=== PATIENT | female | born 1985 | race Caucasian/White ===

== ENCOUNTER → 2019-02-03 11:48 | Outpatient (CLI) | payer SELFPAY ==
[2019-02-03 10:55] VITALS: BMI 35.8
[2019-02-03 12:15] LABS: Absolute Lymphocyte Count 2.05 X10^3/ul (0.83-4.51); Absolute Neutrophil Count 7.5 X10^3/uL (2.0-7.7); Basophil# 0.02 X10^3/uL; Basophil% 0.2 % (0-1); Eosinophil# 0.13 X10^3/uL; Eosinophils% 1.3 % (0-5); Hematocrit 40.7 % (37-47); Hemoglobin 14.3 g/dl (12.0-15.0); Lymphocyte # 2.05 X10^3/ul (4.0); Lymphocyte % 20.2 % (19-41); Mean Corp Hgb Conc 35.1 g/gl (32-36); Mean Corpuscular Hgb 29.1 pg (27.0-32.0); Mean Corpuscular Volume 82.9 fL (81-99); Mean Platelet Vol. 8.7 fl (6.2-12.0); Monocyte# 0.42 X10^3/uL; Monocyte% 4.1 % (0-10); Neutrophil # 7.49 X10^3/uL (2.7-7.7); Platelet Count 325 K/mm3 (150-450); RBC Distribution Width CV 12.8 % (11.6-14.6); RBC Distribution Width SD 38.4 fl (35.1-43.9); Red Blood Count 4.91 M/mm3 (4.2-5.4); White Blood Count 10.1 K/mm3 (4.4-11.0)
[2019-02-03 12:17] LABS: POSITIVE COUNT NO; POSITIVE DIFFERENTIAL NO; POSITIVE MORPHOLOGY NO
[2019-02-03 12:48] LABS: Glucose Challenge Gest 1H 50g 110 mg/dL (70-140)
[2019-02-03 13:47] LABS: HIV - WCH Non-Reactive (Nonreactive); Rubella IgG > 500.0 IU/mL
[2019-02-03 16:33] LABS: Chlamydia Trachomatis by PCR Negative (Negative); Neisserai gonorrhoeae by PCR Negative (Negative); Probe Check PASS; Sample Adequacy Control PASS; Specimen Processing Control PASS
[2019-02-04 13:24] LABS: HEPATITIS B SURFACE AG Negative (Negative)
[2019-02-06 03:28] LABS: Rapid Plasmin Reagin (RPR) NONREACTIVE (NONREACTIVE)
[2019-02-06 10:31] LABS: HPV APTIMA, High Risk Negative (Negative)
== END ==
PROVIDERS: Nurse Practitioner Women's Health; Family Provider Family Medicine; PCP Family Medicine; Referring Provider Obstetrics & Gynecology; Visit Provider Obstetrics & Gynecology
DX: Z34.90 Encounter for supervision of normal pregnancy, unspecified, unspecified trimester (principal); Z12.4 Encounter for screening for malignant neoplasm of cervix
CPT/HCPCS: 36415; 82950; 85025; 86592; 86703; 86762; 86850; 86900; 87086; 87340; 87491; 87591; 87624; 88175; G0145

== ENCOUNTER → 2019-05-29 10:47 | Outpatient (CLI) | payer SELFPAY ==
[2019-05-29 09:45] VITALS: BMI 32.8
[2019-05-29 11:23] LABS: Absolute Lymphocyte Count 1.81 X10^3/uL (0.83-4.51); Absolute Neutrophil Count 7.2 X10^3/uL (2.0-7.7); Basophil# 0.03 X10^3/uL; Basophil% 0.3 % (0-1); Eosinophil# 0.08 X10^3/uL; Eosinophils% 0.8 % (0-5); Hematocrit 36.4 % (37-47); Hemoglobin 12.2 g/dL (12.0-15.0); Lymphocyte # 1.81 X10^3/ul (4.0); Lymphocyte % 19.1 % (19-41); Mean Corp Hgb Conc 33.5 g/dL (32-36); Mean Corpuscular Hgb 28.6 pg (27.0-32.0); Mean Corpuscular Volume 85.4 fL (81-99); Mean Platelet Vol. 8.5 fl (6.2-12.0); Monocyte# 0.32 X10^3/uL; Monocyte% 3.4 % (0-10); NRBC Flagged by Analyzer 0 % (0-5); Neutrophil # 7.23 X10^3/uL (2.7-7.7); Neutrophil % 76.1 % (47-70); Platelet Count 325 K/mm3 (150-450); RBC Distribution Width CV 13.1 % (11.6-14.6); RBC Distribution Width SD 39.8 fl (35.1-43.9); Red Blood Count 4.26 M/mm3 (4.2-5.4); White Blood Count 9.5 K/mm3 (4.4-11.0)
[2019-05-29 11:32] LABS: Glucose Challenge Gest 1H 50g 142 mg/dL (70-140)
== END ==
PROVIDERS: Family Provider Family Medicine; PCP Family Medicine; Referring Provider Obstetrics & Gynecology; Visit Provider Obstetrics & Gynecology
DX: Z34.80 Encounter for supervision of other normal pregnancy, unspecified trimester (principal)
CPT/HCPCS: 82950; 85025

== ENCOUNTER → 2019-06-09 09:49 | Outpatient (CLI) | payer SELFPAY ==
[2019-05-29 11:11] VITALS: BMI 32.8
[2019-06-09 11:04] LABS: Glucose GTT-Gestation. Fasting 83 mg/dL (<105)
[2019-06-09 12:43] LABS: Glucose GTT-Gestational 1 Hr 176 mg/dL (<190)
[2019-06-09 13:33] LABS: Glucose GTT-Gestational 3 Hr 169 L (<145)
[2019-06-09 13:54] LABS: Glucose GTT-Gestational 2 Hr 180 mg/dL (<165)
== END ==
PROVIDERS: Family Provider Family Medicine; PCP Family Medicine; Referring Provider Obstetrics & Gynecology; Visit Provider Obstetrics & Gynecology
DX: O99.810 Abnormal glucose complicating pregnancy (principal); Z3A.00 Weeks of gestation of pregnancy not specified
CPT/HCPCS: 36415; 82951; 82952

== ENCOUNTER 2019-07-20 14:00 | Outpatient (RCR) | payer SELFPAY ==
[2019-06-26 10:35] VITALS: BMI 32.8
[2019-07-13 10:15] VITALS: BMI 32.8
== END 2019-07-20 23:59 | disposition home or self-care (01) ==
LOC: DC 14:00
PROVIDERS: Family Provider Family Medicine; PCP Family Medicine; Visit Provider Nurse Practitioner Women's Health
DX: Z71.3 Dietary counseling and surveillance (principal)
CPT/HCPCS: 97802

== ENCOUNTER → 2019-08-07 11:38 | Outpatient (CLI) | payer SELFPAY ==
[2019-08-07 09:46] VITALS: BMI 32.8
== END ==
PROVIDERS: Family Provider Family Medicine; PCP Family Medicine; Visit Provider Nurse Practitioner Women's Health
DX: Z34.93 Encounter for supervision of normal pregnancy, unspecified, third trimester (principal); Z3A.36 36 weeks gestation of pregnancy
CPT/HCPCS: 87081

== ENCOUNTER 2019-09-03 13:55 | Inpatient (IN) | payer SELFPAY ==
[2019-08-29 04:06] VITALS: BMI 32.8
[2019-09-03 14:14] VITALS: BMI 33.6
[2019-09-03] MEDS: Lactated Ringers 1,000 ML 50 ML IV (14:15)
[2019-09-03 14:42] LABS: Absolute Lymphocyte Count 1.98 X10^3/uL (0.83-4.51); Absolute Neutrophil Count 8.9 X10^3/uL (2.0-7.7); Basophil# 0.03 X10^3/uL; Basophil% 0.3 % (0-1); Eosinophil# 0.06 X10^3/uL; Eosinophils% 0.5 % (0-5); Hematocrit 39.4 % (37-47); Hemoglobin 13.4 g/dL (12.0-15.0); Lymphocyte # 1.98 X10^3/ul (4.0); Lymphocyte % 17.1 % (19-41); Mean Corpuscular Hgb 27.8 pg (27.0-32.0); Mean Corpuscular Volume 81.7 fL (81-99); Mean Platelet Vol. 8.5 fl (6.2-12.0); Monocyte# 0.51 X10^3/uL; Monocyte% 4.4 % (0-10); NRBC Flagged by Analyzer 0 % (0-5); Neutrophil # 8.94 X10^3/uL (2.7-7.7); Neutrophil % 77.4 % (47-70); Platelet Count 347 K/mm3 (150-450); RBC Distribution Width CV 13.7 % (11.6-14.6); Red Blood Count 4.82 M/mm3 (4.2-5.4); White Blood Count 11.6 K/mm3 (4.4-11.0)
[2019-09-03] MEDS: Lactated Ringers 500 ML 999 ML IV ×2 (14:56→15:45)
[2019-09-03 15:36] LABS: Bedside Glucose 81 mg/dL (70-110)
[2019-09-03] MEDS: fentaNYL-bupivacaine (epidural) 100 ML BAG EPIDURAL ×2 (15:41→20:23)
[2019-09-03] MEDS: Oxytocin 30 units/NS 500 ml 30 UNITS/500 ML IV.SOLN IV (16:27)
[2019-09-03] MEDS: Lactated Ringers 1,000 ML 200 ML IV ×2 (17:11→21:46)
--- NOTE | 2019-09-03 17:36 | PCM.HP.OB ---
- Problem List (1) Active labor at term Status: Acute (2) Influenza vaccination declined Status: Acute Comment: 06/26/2019 (3) Gestational diabetes Status: Acute Qualifiers: Comment: diet controlled, nl growth at 35, delivery by 40 weeks (4) Supervision of other normal Status: Acute Comment: PRR LEI 09/03/19 surprise to kids (parents know) PC: Checo, Joshua, Yanet Moore, Spouse:Jude (5) Status: Acute Qualifiers: Comment: Declines genetic and carrier screening. Anatomy US normal. History Date of Admission: 09/03/19 Final LEI: 09/03/19 Final LEI Source: LMP Gestational age: 40 Weeks and 1 Days History of this : This is a 34 year-old, at 40 weeks gestational age presents IAL 6 cm dilat some vb no lof good fm. gdma1 controlled Allergies No Known Allergies Allergy (Verified 08/28/19 14:52) Home Medications: Home Medications Vits [Prenatabs FA ] 1 tab PO DAILY 12/29/13 Boostrix Tdap 2.5 Lf unit-8 mcg-5 Lf/0.5 mL intramuscular syringe 0.5 ml IM ONCE #1 ml NS 05/29/19 blood sugar diagnostic strips See Rx Instructions .ROUTE .MEDSUPPLY #100 ea 06/22/19 blood-glucose meter kit See Rx Instructions .ROUTE .MEDSUPPLY #1 ea 06/22/19 lancets 28 gauge See Rx Instructions .ROUTE .MEDSUPPLY #100 ea 06/22/19 Smoking Status: Never smoker Alcohol: None Number of Fetus(es): 1 NST - FHR Rate Baby A Baseline: 130 Variability:: Moderate Accelerations:: 15 x 15 Decelerations:: None NST Reactive:: Yes FHR Category:: Category I Uterine Activity:: q 3-5 History Past Pregnancies: Past Pregnancies Pregancy History 7 Elective abortions Hx Para 4 Spontaneous abortions 2 Hx # Term Pregnancies Ectopic pregnancies Hx # Pregnancies Multiple births # of living children 4 Past Pregnancies Del. Date Name GA/Weeks Outcome Route Bth Weight Gen Labor Lgth Anesthesia Del Locatn Provider FOB Unknown 2007 SAB Unknown 2009 Checo 41 live - full term Male epidural [facility] ccf Unknown 2011 Joshua 40 live - full term Female epidural [facility] ccf Unknown 2013 Teresa 41 live - full term Female epidural [facility] ccf Unknown 2017 Yanet 41 live - full term Female epidural [facility] ccf Labs: Mom's Problem List Problem Status Onset Code Active labor at term Acute Mom's Labs & Results 09/03/19 09/03/19 09/03/19 14:15 14:15 15:04 WBC 11.6 H RBC 4.82 Hgb 13.4 Hct 39.4 MCV 81.7 MCH 27.8 MCHC 34.0 RDW Std Deviation 40.0 RDW Coeff of Xavi 13.7 Plt Count 347 MPV 8.5 Immature Gran % (Auto) 0.300 Neut % (Auto) 77.4 H Lymph % (Auto) 17.1 L [place] % (Auto) 4.4 Eos % (Auto) 0.5 Baso % (Auto) 0.3 Absolute Neuts (auto) 8.9 H Absolute Lymphs (auto) 1.98 Nucleated RBC % 0 POC Glucose 81 Blood Type A POSITIVE Antibody Screen NEGATIVE 09/03/19 09/03/19 09/03/19 16:22 17:16 18:08 WBC RBC Hgb Hct MCV MCH MCHC RDW Std Deviation RDW Coeff of Xavi Plt Count MPV Immature Gran % (Auto) Neut % (Auto) Lymph % (Auto) [place] % (Auto) Eos % (Auto) Baso % (Auto) Absolute Neuts (auto) Absolute Lymphs (auto) Nucleated RBC % POC Glucose 78 96 99 Blood Type Antibody Screen 09/03/19 09/03/19 09/03/19 19:23 20:14 21:16 WBC RBC Hgb Hct MCV MCH MCHC RDW Std Deviation RDW Coeff of Xavi Plt Count MPV Immature Gran % (Auto) Neut % (Auto) Lymph % (Auto) [place] % (Auto) Eos % (Auto) Baso % (Auto) Absolute Neuts (auto) Absolute Lymphs (auto) Nucleated RBC % POC Glucose 88 92 101 Blood Type Antibody Screen 09/03/19 23:38 WBC RBC Hgb Hct MCV MCH MCHC RDW Std Deviation RDW Coeff of Xavi Plt Count MPV Immature Gran % (Auto) Neut % (Auto) Lymph % (Auto) [place] % (Auto) Eos % (Auto) Baso % (Auto) Absolute Neuts (auto) Absolute Lymphs (auto) Nucleated RBC % POC Glucose 105 Blood Type Antibody Screen Course Did the patient receive Yes care? Labs Blood Type: A RH: POSITIVE RPR/VDRL/Syphilis Nonreactive Rubella status Immune HbSAg Negative Date Done: 02/03/19 Chlamydia Negative Gonorrhea Negative HIV/AIDS Non-Reactive Group B Strep: Negative Current Obstetrical History Gestational Diabetes Yes Incompetent Cervix No Infertility No IUGR No Macrosomia No Hypertension/Pre-eclampsia No Placenta Previa/Abruption No PTL/PROM No Uterine anomaly No Oligohydramnios No Polyhydramnios No Multiple gestation No Past Medical History Asthma No Diabetes No Hypertension No Heart disease No Mitral valve prolapse No Neurologic/Seizure disorder/ No Migraines Kidney disease No Liver disease No Varicosities No Clotting disorders/Hx of DVT No Thyroid Dysfunction No Other medical diseases No Psychiatric disorders No Major trauma No Abnormal PAP smear No Sleep apnea No Mammogram in the last 2 years No Social History Marital Status: Alleged father Jude Petersen Hx Smoking No Smoking Status Never smoker Expected Delivery Method: Spontaneous Vaginal Review of Systems Constitutional: Denies: Fever, Malaise Eyes: Denies: Blurred vision, Vision Change HEENT: Denies: Head Aches, Visual Changes Cardiovascular: Denies: Chest Pain, Palpitations Respiratory: Denies: Cough, Shortness of Breath, Wheezing Gastrointestinal: Denies: Abdominal Pain, Diarrhea, Nausea, Vomiting Genitourinary: Denies: Dysuria, Hematuria Musculoskeletal: Denies: Joint Pain, Muscle pain Skin: Denies: Lesions, Rash Neurological: Denies: Blurred vision, Focal weakness, Headaches Psychiatric: Denies: Anxiety, Depression Endocrine: Denies: Heat/ Cold Intolerance Hematologic/ Lymphatic: Denies: Easy Bruising, Easy Bleeding Physical Exam General: Alert, Cooperative, No apparent distress HEENT: Atraumatic, Normocephalic. Negative for: Thyromegaly, Lymphadenopathy Cardiovascular: Regular rate Lungs: Normal air movement Abdomen: Soft, Non Tender, Gravid Neurological: Deep Tendon Reflexes 2+/4 and Symmetrical, Neuro grossly intact. Negative for: Clonus [employer]: Normal external genitalia. Negative for: Vulvar lesions Estimated gestational size: Appropriate for gestational size Presentation: Cephalic Assessment/Plan All Active Problems (Last Reviewed 08/28/19 @ 14:53 by Jody Powell) Active labor at term (Acute) Influenza vaccination declined (Acute) Gestational diabetes (Acute) Supervision of other normal (Acute) (Acute) This is a 34 year-old, , at 40 weeks gestational age presents in active labor gbs neg epidural
[2019-09-03 19:20] LABS: Bedside Glucose 96 mg/dL (70-110)
[2019-09-03 19:20] LABS: Bedside Glucose 99 mg/dL (70-110)
[2019-09-03 19:20] LABS: Bedside Glucose 78 mg/dL (70-110)
[2019-09-03 19:40] LABS: Bedside Glucose 88 mg/dL (70-110)
[2019-09-03 20:21] LABS: Bedside Glucose 92 mg/dL (70-110)
[2019-09-03 21:40] LABS: Bedside Glucose 101 mg/dL (70-110)
--- NOTE | 2019-09-03 22:15 | NURSING ---
hammer catheter removed at this time by Dr Smith prior to delivery. Intact
[2019-09-03] MEDS: Oxytocin 30 units/NS 500 ml 30 UNITS/500 ML IV.SOLN 334 UNITS IV (22:27)
--- NOTE | 2019-09-03 22:41 | PCM.OPRPT ---
Problem List (1) Active labor at term Status: Acute (2) Influenza vaccination declined Status: Acute Comment: 06/26/2019 (3) Gestational diabetes Status: Acute Qualifiers: Comment: diet controlled, nl growth at 35, delivery by 40 weeks (4) Supervision of other normal Status: Acute Comment: PRR ELI 09/03/19 surprise to kids (parents know) PC: Joshua Kessler Paige, Emma, Spouse:Jude (5) Status: Acute Qualifiers: Comment: Declines genetic and carrier screening. Anatomy US normal. Vaginal Delivery Maternal Presentation: Active Labor ial, gdma1 Method of Induction: Pitocin Amniotic Membrane Rupture Type: Artificial Amniotic Fluid Description: Clear Final LEI: 09/03/19 Gestational age: 40 Weeks and 3 Days Date of Procedure: 09/03/19 Pre-Operative Diagnosis: ial gdma1 Post-Operative Diagnosis: same Surgery/ Procedure Performed: Spontaneous Vaginal Delivery Type of Anesthesia: Epidural Description of Procedure: Patient began pushing and delivered the head in the AUSTYN presentation. The head was delivered atraumatically and a loose nuchal cord ?1 was identified and easily reduced over the infant's head. The anterior and posterior shoulders delivered without complication followed by the rest of the and the was placed on the maternal abdomen. Delayed cord clamping was employed for approximately 60 seconds. Cord was clamped and cut and gentle traction was applied to the cord and the placenta delivered spontaneously immediately following it was noted to be intact with three-vessel cord. The perineum and vagina were inspected and noted to have a small first-degree perineal laceration that was repaired in the usual fashion with 3-0 Vicryl Rapide. EBL was 200 cc. Patient and infant tolerated delivery well. Presentation: AUSTYN Placental Delivery Description: Spontaneous Placenta Disposition: [facility] Cord Vessel Description: 3 Vessels Cord Entanglement: Around neck x 1, tight Estimated Blood Loss: 200 A gender: Male Multi Select Codes - Urinary/Genital Urinary/Genital CPT Codes: 30831 Vaginal Delivery global pk
[2019-09-03 23:46] LABS: Bedside Glucose 105 mg/dL (70-110)
[2019-09-04 00:35] VITALS: BP 97/56; PULSE 97; RESP 18; TEMP 36.8; O2SAT 97
[2019-09-04] MEDS: 0.9% Saline Lock 10 ML Syringe IV (01:22)
[2019-09-04 03:09] VITALS: BP 115/58; PULSE 101; RESP 18; TEMP 36.8
[2019-09-04 05:51] LABS: Bedside Glucose 103 mg/dL (70-110)
[2019-09-04] MEDS: Naproxen 250 MG Tablet 500 MG PO ×2 (07:32→19:50)
[2019-09-04 07:39] VITALS: BP 109/61; PULSE 79; RESP 16; TEMP 36.4
[2019-09-04 12:09] VITALS: BP 116/59; PULSE 82; RESP 16; TEMP 36.9
[2019-09-04] MEDS: Acetaminophen 500 MG Tablet 1000 MG PO (14:45)
[2019-09-04 15:55] VITALS: BP 111/59; PULSE 78; RESP 16; TEMP 36.4
[2019-09-04 19:52] VITALS: BP 116/61; PULSE 78; RESP 18; TEMP 36.8
[2019-09-04] MEDS: Senna/Docusate Sodium 1 Tablet PO (20:12)
[2019-09-05 02:27] VITALS: BP 119/61; PULSE 100; RESP 18; TEMP 36.6
[2019-09-05] MEDS: Acetaminophen 500 MG Tablet 1000 MG PO (02:39)
--- NOTE | 2019-09-05 07:05 | DCINST_ITS ---
Discharge Diet: No Restrictions Discharge Activity: Return to Normal Activity, May not drive while taking narcotic pain medications., May Shower May resume sexual activity in: 4-6 weeks Call your doctor if your incision/area has: Continuous Slow Oozing, Sudden Increased Bleeding, Increased Pain/ Swelling, Increased Redness, Foul Smelling Discharge Additional Instructions: If you experience any of the following, contact your healthcare provider. * Bleeding that soaks a pad every hour for 2 hours * Fever 100.4 or higher * Unrelieved incision or abdominal pain * Swelling, redness, discharge or bleeding from your incision or episiotomy site * Your incision begins to separate * Problems urinating (including inability to urinate or burning while urinating). * Visual changes * Severe headache * Flu-like symptoms * Pain or redness in one of both of your breasts * Pain, warmth, tenderness or swelling in your legs, especially the calf area * Frequent nausea and vomiting * Symptoms of depression or anxiety If you experience any of the following, call 911 or go to the nearest Emergency Room. * Chest pain * Problems breathing * Seizure activity * Partial or complete paralysis of a body part, slurred speech, weakness or drooping of the face, or a sudden inability to walk or hold your balance Allergies/Adverse Reactions: Allergies No Known Allergies Allergy (Verified 08/28/19 14:52) Medications to take at Discharge Vits [Prenatabs FA ] 1 tab PO DAILY 12/29/13 Boostrix Tdap 2.5 Lf unit-8 mcg-5 Lf/0.5 mL intramuscular syringe 0.5 ml IM ONCE #1 ml NS 05/29/19 blood sugar diagnostic strips See Rx Instructions .ROUTE .MEDSUPPLY #100 ea 06/22/19 blood-glucose meter kit See Rx Instructions .ROUTE .MEDSUPPLY #1 ea 06/22/19 lancets 28 gauge See Rx Instructions .ROUTE .MEDSUPPLY #100 ea 06/22/19 Please Follow Up With: Myra Smith MD - [phone] When: Call to make an appointment with your doctor in 6 weeks. If you had elevated Blood pressure or 4th degree laceration you will need to be seen in 2 weeks. Primary Care Physician: Dolly Harding MD [Primary Care Provider] - Test Results: Test results from this visit will be discussed in further detail at your follow- up appointment, if applicable.
--- NOTE | 2019-09-05 07:05 | PCM.PN.OB ---
Patient Problems: Active and Suspected Problems (Last Reviewed 08/28/19 @ 14:53 by Jody Powell) Active labor at term (Acute) Subjective: doing well no complaints pain controlled no CP SOB N V ambulating well tolerating po lochia moderate, going well - Physical Exam Vitals/I&O's: Vital Signs Temp Pulse Resp BP Pulse Ox 97.9 F 100 18 119/61 97 09/05/19 02:27 09/05/19 02:27 09/05/19 02:27 09/05/19 02:27 09/04/19 00:35 Oxygen Delivery Method Room Air Weight: 190 lb Body Mass Index (BMI) 33.6 Intake and Output for Last 24 Hours 09/03/19 09/04/19 09/05/19 23:59 23:59 23:59 Intake Total 2749.28 / 2749.28 333 / 333 Output Total 1800 / 1800 1650 / 1650 Balance 949.28 / 949.28 -1317 / -1317 General: Alert, Oriented x3 Current Medications Acetaminophen (Tylenol) 1,000 mg PO Q8H PRN PRN PRN Reason: Pain Score 1-310 Last Admin: 09/05/19 02:39 Dose: 1,000 mg Documented by: Bisacodyl (Dulcolax) 10 mg RECTAL UD PRN PRN Reason: If no BM Dibucaine (Dibucaine) 1 applic TOPICAL TID PRN PRN; Protocol PRN Reason: Discomfort Glucagon () 1 mg IM .X1 PRN PRN Reason: Hypoglycemia Hydrocortisone (Hytone) 1 applic TOPICAL TID PRN PRN; Protocol PRN Reason: Discomfort Dextrose (Dextrose 10%-Water) 250 mls @ 999 mls/hr IV X1 PRN; Protocol PRN Reason: HYPOGLYCEMIA Methylergonovine Maleate (Methergine) 0.2 mg IM X1 PRN PRN Reason: Excess bleeding/uterine atony Naproxen (Naprosyn) 500 mg PO Q8H PRN PRN PRN Reason: Pain Score 1-3/10 Last Admin: 09/04/19 19:50 Dose: 500 mg Documented by: Ondansetron HCl (Zofran) 4 mg IV Q4H PRN PRN PRN Reason: Nausea Oxycodone HCl (Oxyir) 5 - 10 mg PO Q4H PRN PRN PRN Reason: Pain Score 4-10/10 Senna/Docusate Sodium (Senokot-S, Ananya-Colace) 1 - 2 tablet PO DAILY PRN PRN PRN Reason: Constipation Last Admin: 09/04/19 20:12 Dose: 2 tablet Documented by: Simethicone (Mylicon) 80 mg PO PCHS PRN PRN Reason: Indigestion/Stomach pain Sodium Chloride () 5 - 15 ml IV UD PRN PRN Reason: SALINE FLUSH Last Admin: 09/04/19 01:22 Dose: 10 ml Documented by: Medical Necessity - Tobacco Use Smoking Status: Never smoker Assessment/Plan All Active Problems (Last Reviewed 08/28/19 @ 14:53 by Jody Powell) Active labor at term (Acute) Influenza vaccination declined (Acute) Gestational diabetes (Acute) Supervision of other normal (Acute) (Acute) s/p PPD # 2 1. routine post delivery care 2. breast feeding- support given 3. rh positive 4. rubella immune
[2019-09-05 07:45] VITALS: BP 114/62; PULSE 100; RESP 14; TEMP 36.7
[2019-09-05] MEDS: Naproxen 250 MG Tablet 500 MG PO (07:55)
[2019-09-05 13:00] VITALS: BP 118/75; PULSE 101; RESP 18; TEMP 36.4
== END 2019-09-05 13:25 | disposition home or self-care (01) | DRG 807 ==
PROVIDERS: Admitting Provider Obstetrics & Gynecology; Family Provider Family Medicine; PCP Family Medicine; Referring Provider Obstetrics & Gynecology; Visit Provider Obstetrics & Gynecology
DX: O24.420 Gestational diabetes mellitus in childbirth, diet controlled (principal); O69.81X0 Labor and delivery complicated by cord around neck, without compression, not applicable or unspecified; O70.0 First degree perineal laceration during delivery; Z28.21 Immunization not carried out because of patient refusal; Z3A.40 40 weeks gestation of pregnancy; Z37.0 Single live birth
CPT/HCPCS: 59025; 59050; 76815; 82962; 85025; 86850; 86900; 86901; 99218; J7120; A4216; G0378

== ENCOUNTER 2023-05-05 06:31 | Emergency (ER) | payer OTHER, SELFPAY ==
[2023-05-05 06:33] VITALS: PULSE 61; RESP 24; TEMP 36.4; O2SAT 100; BMI 33.5
--- NOTE | 2023-05-05 06:57 | CT_ITS ---
STUDY: CTA CHEST REASON FOR EXAM: Female, 38 years old. Chest pain with inspiration RADIATION DOSAGE (If Supplied By Facility): CTDIvol = ( 13.18 ) mGy, DLP = ( 351.06 ) mGycm TECHNIQUE: The examination was performed with the intravenous administration of IV 100mL Isovue-370. Post-processing of the angiographic images was performed, with multiplanar reformation and 3D reconstruction. Individualized dose optimization techniques were used for this CT. COMPARISON: No prior examinations are available for comparison. FINDINGS: Normal enhancement of the main pulmonary artery and right and left pulmonary arteries. There is limited enhancement of the bilateral peripheral pulmonary arteries. There is no demonstrated central pulmonary embolism. Difficult to evaluate the peripheral branches particularly in the left lower lobe. Small embolism cannot be excluded. Normal thoracic aorta and visualized great vessels. There is no demonstrated aortic dissection. Normal heart and pericardium. Normal mediastinum. Normal hilar regions. Normal visualized trachea and bronchi. The lungs are well expanded. There are no pulmonary infiltrates. There are no pleural effusions. Normal chest wall structures. Normal osseous structures. The visualized portions demonstrate no acute process. CT/CTA Chest W/WO Contrast IMPRESSION: 1. No evidence of central pulmonary embolism. Suboptimal evaluation of the peripheral branches particularly in the left lower lobe. 2. No evidence of the dissection. 3. No mass, adenopathy or focal acute pulmonary infiltrates. Electronically Signed: Ariel Wood MD at 10:06 EDT ,
--- NOTE | 2023-05-05 07:16 | EX.ED.DYSGE1 ---
HPI <Dr. Zach Naidu, DO - Last Filed: 05/05/23 07:25> History of Present Illness Chief Complaint: Flank Pain Informant: patient and spouse/S.O. Narrative Narrative: Patient is a 38-year-old female who states she has no significant past medical conditions and takes no daily medications. She gave a vaginal home on Saturday/6 days ago with the help of spoilage worker. According to patient and in the birthing process went well and she labored for approximately 6 hours without any issues. Reportedly there was standard bleeding but no excessive blood loss. Patient was able to urinate a few hours later and had a bowel movement 2 days later. Reportedly she has been doing well and then this morning a few hours prior to arrival developed sudden onset left-sided back/flank pain. Patient states that she cannot get comfortable. She states that motion does not make the pain better or worse but that she cannot hold still secondary to the pain. She states she is nauseous and having bouts of vomiting since the pain started. She denies any fevers or chills or chest pain but does state that she has worsening pain with inspiration. Based on the sudden nature of the pain and the fact that there is been no improvement with time patient presents for evaluation [facility] <Dr. Zach Naidu, - Last Filed: 05/05/23 07:25> [facility] Medical History no medical history Home Medications blood sugar diagnostic (Blood Glucose Test strips) #100 ea 06/22/19 [Rx Last Taken Unknown] blood-glucose meter #1 ea 06/22/19 [Rx Last Taken Unknown] lancets 28 gauge (Comfort EZ Lancets) #100 ea 06/22/19 [Rx Last Taken Unknown] cephalexin 500 mg capsule 500 mg PO Q6 #28 CAPSULES 05/05/23 [Rx Last Taken Unknown] oxycodone-acetaminophen 5 mg-325 mg tablet 1 tab PO Q6H PRN PRN Pain 3 days #12 TABLETS 05/05/23 [Rx Last Taken Unknown] Allergy/AdvReac Type Severity Reaction Status Date / Time No Known Allergies Allergy Verified 10/14/19 13:19 Family History Mother Heart disease Breast cancer Father Myocardial infarction, Onset Age: 56 Surgical History no surgical history Social History (Updated 10/14/19 @ 23:[address] 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 Zach Naidu, DO - Last Filed: 05/05/23 07:25> ROS ED Constitutional Constitutional ED: Denies chills or fever(s) Eyes Eyes: Denies change in vision ENT ENT ED: Denies sore throat Cardiovascular Cardiovascular: Denies chest pain, palpitations or racing heartbeat Respiratory/Chest Respiratory/Chest: Denies cough or dyspnea Gastrointestinal Gastrointestinal: Reports nausea and vomiting; Denies abdominal pain or diarrhea Genitourinary Genitourinary ED: Denies dysuria Musculoskeletal Musculoskeletal: Reports back pain; Denies myalgias Integumentary Denies rash Neurologic Neurologic: Denies headache(s) Hematologic/Lymphatic Hematologic/Lymphatic: Denies easy bleeding or easy bruising EXAM <Dr. Zach Naidu, DO - Last Filed: 05/05/23 07:25> Physical Exam Const Vital Signs: 05/05/23 06:33 05/05/23 09:51 Temperature 97.6 F L Temperature Source Temporal Pulse Rate 61 61 Respiratory Rate 24 H Blood Pressure 120/69 Blood Pressure Mean 86 Pulse Ox 100 99 Oxygen Delivery Method Room Air Room Air Positive well nourished and well developed General Appearance ED: well developed HEENT Reports moist mucous membranes Eyes PERRL and EOMs intact bilaterally General Eye ED: Yes pale conjunctiva; Negative for scleral icterus Neck supple Neck Narrative: No nuchal rigidity or meningeal signs noted Resp normal respiratory effort and clear to auscultation bilaterally Resp Narrative: Breath sounds are slightly diminished throughout but overall clear to auscultation Cardio regular rate and regular rhythm Rate: other Other Details: Radial and carotid pulses are equal and symmetric GI normal to inspection, nondistended, normoactive bowel sounds, non-tender and non-distended GI Narrative: Patient has a standard post vaginal delivery abdomen that is soft nontender and nondistended with hypoactive bowel sounds. No voluntary guarding or rigidity. No pulsatile mass or fluid wave Auscultation: normoactive bowel sounds Palpation: soft Back/Spine no CVA tenderness Extremity Extremity Narrative: There is slight/trace asymmetric edema of the left lower leg compared to right but negative Homans' sign bilaterally Neuro oriented x3 and CN's II-XII intact bilaterally Sensorium / Orientation: alert Motor Exam: strength 5/5 throughout Psych Psych Narrative: Patient has a nervous/anxious affect Skin no rashes or lesions noted Skin Narrative: Skin is slightly pale in color but capillary refill remains less than 3 seconds <Dr. Craig Sepulveda MD - Last Filed: 05/05/23 11:16> Physical Exam Const Vital Signs: 05/05/23 06:33 05/05/23 09:51 Temperature 97.6 F L Temperature Source Temporal Pulse Rate 61 61 Respiratory Rate 24 H Blood Pressure 120/69 Blood Pressure Mean 86 Pulse Ox 100 99 Oxygen Delivery Method Room Air Room Air MDM <Dr. Zach Naidu DO - Last Filed: 05/05/23 07:25> MDM MDM Narrative Medical decision making narrative: Patient presented to the ER afebrile but patient and both reported sudden onset of pain in the patient's symptoms did not worsen or improve with any type of motion. There is concern this could be kidney stone based on her sudden onset of pain but she did not have CVA pain on exam. Patient also voiced that taking breath since seem to worsen symptoms and with her recent state and vaginal delivery she is at risk for potential pulmonary embolus. She also has risk for UTI/pyelonephritis as a cause of her sudden onset back/flank pain. Secondary to to this differential patient will undergo a CTA of her chest to check for potential PE as well as CT of abdomen and pelvis to look for potential kidney stone versus pyelonephritis or abdominal pathology such as biliary colic or pancreatitis. The patient's labs and imaging are still pending and therefore patient be signed out to the daytime physician Dr. Sepulveda. Disposition will be per him regarding the patient's response to treatment as well as testing results History & Record Review Discussion w/independent historian: Patient and Significant other Lab Data Labs: Laboratory Results - last 24 hr 05/05/23 05/05/23 05/05/23 06:50 07:15 10:32 WBC 10.6 RBC 4.23 Hgb 10.2 L Hct 33.4 L MCV 79.0 L MCH 24.1 L MCHC 30.5 L RDW Std Deviation 46.6 H RDW Coeff of Xavi 16.6 H Plt Count 527 H MPV 8.4 Immature Gran % (Auto) 0.600 Neut % (Auto) 57.0 Lymph % (Auto) 35.9 [place] % (Auto) 4.1 Eos % (Auto) 1.9 Baso % (Auto) 0.5 Absolute Neuts (auto) 6.1 Absolute Lymphs (auto) 3.81 Nucleated RBC % 0 PT 13.6 INR 1.0 APTT 32.7 Sodium 140 Potassium 3.6 Chloride 107 Carbon Dioxide 21.0 Anion Gap 12 BUN 13 Creatinine 0.95 Estim Creat Clear Calc 66.42 Est GFR (MDRD) Af Amer 85 Est GFR (MDRD) Non-Af 70 BUN/Creatinine Ratio 13.7 Glucose 116 H Calcium 8.7 Total Bilirubin 0.40 Direct Bilirubin 0.09 AST 40 H ALT 73 H Alkaline Phosphatase 227 H Total Protein 7.3 Albumin 2.9 L Globulin 4.4 H Lipase 40 Urine Color Yellow Urine Clarity Sl. Cloudy Urine pH 5.0 Ur Specific [place] 1.015 Urine Protein 30 H Urine Glucose (UA) Normal Urine Ketones 15 H Urine Occult Blood 250 H Urine Nitrite Negative Urine Bilirubin Negative Urine Urobilinogen Normal Ur Leukocyte Esterase 500 H Urine RBC 10-25 SEEN Urine WBC 10-25 SEEN Ur Squamous Epith Cells 0 SEEN Urine Bacteria RARE Urine Mucus 0 SEEN Radiography Diagnostic Testing: Clinical Impression(s) from Imaging Studies Chest CTA 05/05/23 06:57 IMPRESSION: 1. No evidence of central pulmonary embolism. Suboptimal evaluation of the peripheral branches particularly in the left lower lobe. 2. No evidence of the dissection. 3. No mass, adenopathy or focal acute pulmonary infiltrates. Electronically Signed: Ariel Wood MD at 10:06 EDT , Abdomen/Pelvis CT 05/05/23 08:27 IMPRESSION: 1. Subtle stranding around the upper pole of the left kidney could reflect early pyelonephritis. 2. No evidence of urinary tract stones or hydronephrosis. 3. Otherwise no focal acute inflammatory process. 4. Markedly enlarged uterus with possible fibroids. Electronically Signed: Ariel Wood MD at 9:12 EDT , <Dr. Craig Sepulveda MD - Last Filed: 05/05/23 11:16> [facility] Lab Data Attestation: I reviewed the patient's lab results. Labs: Laboratory Results - last 24 hr 05/05/23 05/05/23 05/05/23 06:50 07:15 10:32 WBC 10.6 RBC 4.23 Hgb 10.2 L Hct 33.4 L MCV 79.0 L MCH 24.1 L MCHC 30.5 L RDW Std Deviation 46.6 H RDW Coeff of Xvai 16.6 H Plt Count 527 H MPV 8.4 Immature Gran % (Auto) 0.600 Neut % (Auto) 57.0 Lymph % (Auto) 35.9 [place] % (Auto) 4.1 Eos % (Auto) 1.9 Baso % (Auto) 0.5 Absolute Neuts (auto) 6.1 Absolute Lymphs (auto) 3.81 Nucleated RBC % 0 PT 13.6 INR 1.0 APTT 32.7 Sodium 140 Potassium 3.6 Chloride 107 Carbon Dioxide 21.0 Anion Gap 12 BUN 13 Creatinine 0.95 Estim Creat Clear Calc 66.42 Est GFR (MDRD) Af Amer 85 Est GFR (MDRD) Non-Af 70 BUN/Creatinine Ratio 13.7 Glucose 116 H Calcium 8.7 Total Bilirubin 0.40 Direct Bilirubin 0.09 AST 40 H ALT 73 H Alkaline Phosphatase 227 H Total Protein 7.3 Albumin 2.9 L Globulin 4.4 H Lipase 40 Urine Color Yellow Urine Clarity Sl. Cloudy Urine pH 5.0 Ur Specific [place] 1.015 Urine Protein 30 H Urine Glucose (UA) Normal Urine Ketones 15 H Urine Occult Blood 250 H Urine Nitrite Negative Urine Bilirubin Negative Urine Urobilinogen Normal Ur Leukocyte Esterase 500 H Urine RBC 10-25 SEEN Urine WBC 10-25 SEEN Ur Squamous Epith Cells 0 SEEN Urine Bacteria RARE Urine Mucus 0 SEEN Radiography Diagnostic Testing: Clinical Impression(s) from Imaging Studies Chest CTA 05/05/23 06:57 IMPRESSION: 1. No evidence of central pulmonary embolism. Suboptimal evaluation of the peripheral branches particularly in the left lower lobe. 2. No evidence of the dissection. 3. No mass, adenopathy or focal acute pulmonary infiltrates. Electronically Signed: Ariel Wood MD at 10:06 EDT , Abdomen/Pelvis CT 05/05/23 08:27 IMPRESSION: 1. Subtle stranding around the upper pole of the left kidney could reflect early pyelonephritis. 2. No evidence of urinary tract stones or hydronephrosis. 3. Otherwise no focal acute inflammatory process. 4. Markedly enlarged uterus with possible fibroids. Electronically Signed: Ariel Wood MD at 9:12 EDT , Treatment and Re-Evaluation Comments:: Patient checked out to me. She was refusing CT scanning because of the dye and the need to breast-feed every 3 hours. I had a prolonged conversation with the patient and her . She received morphine about 30 minutes prior to this conversation so she began breast-feeding as soon as possible, and in the literature that I reviewed, it is safe to breast-feed after receiving IV dye as less than 1% of the dye is transmitted into breastmilk and less than 1% of that is absorbed after baby feeds on that breastmilk. They are okay undergoing CT scanning with contrast. Furthermore, current recommendations are to not stop breast-feeding after 1 dose of morphine which is actually the preferred analgesic and a lactating mother. I discussed the small risks of breast-feeding after receiving morphine, she understands this, they do not have any milk saved and they do not have any formula right now, and she is asking for more morphine and understands his risks which is then ordered and given. Patient went to CT and her IV blew prior to being able to get the CTA. Therefore I changed the CT abdomen/pelvis to a noncontrast study, and then she came back and received another IV and went back for CTA. I reviewed the studies' imaging and report which I agree with, basically negative for PE or any intrathoracic acute pathology, and the CT abdomen/pelvis showed mild perinephric stranding on the left without signs of hydronephrosis or obstructive uropathy. Differential here includes infection as well as a stone/obstruction that had resolved prior to taking the images. She was given a couple doses of morphine total as well as Toradol and the latter medication really helped her pain more. At this time I am suggesting this is renal in etiology, but she has had no urinary symptoms. Her urine is suggesting infection. I am sending this for culture and given the scenario treating empirically since she has renal colic, for infection. Received Rocephin 1 g IV, and we will send her home on cephalexin which is the least likely to interfere with , and she stable for discharge home. Of note, Toradol has been shown to not be harmful to babies and lactating mothers and she received 1 dose. Discharge Plan Triage Chief Complaint: Flank Pain ED Provider: Zach Naidu Dx/Rx/DC Orders Clinical Impression: Acute left flank pain, Acute upper urinary tract infection, Renal colic on left side Instructions: Urinary Tract Infections in Women, ED Kidney Stone w/ Colic Prescriptions: New oxycodone-acetaminophen [oxycodone-acetaminophen] 5-325 mg tablet 1 tab PO Q6H PRN PRN (Reason: Pain) 3 Days Qty: 12 0RF cephalexin [cephalexin] 500 mg capsule 500 mg PO Q6 Qty: 28 0RF No Action (DME) Blood Glucose Test Strip See Rx Instructions .ROUTE .MEDSUPPLY Qty: 100 9RF Rx Instructions: test blood glucose fasting and the 2 hours after breakfast, lunch and dinner. (DME) blood-glucose meter Kit See Rx Instructions .ROUTE .MEDSUPPLY Qty: 1 0RF Rx Instructions: As directed (DME) lancets [Comfort EZ Lancets] 28 gauge misc See Rx Instructions .ROUTE .MEDSUPPLY Qty: 100 9RF Rx Instructions: As directed Primary Care Provider: Dolly Harding Referrals: Dolly Harding MD [Primary Care Provider] - 3-5 Days (And/or with your OB) Activity Restrictions/Additional Instructions: You may continue breast-feeding and monitoring baby closely for any signs of lethargy while taking these medications and less needing to take 6 doses of oxycodone per day or more. Disposition Disposition: Home, Self Care
[2023-05-05 07:17] LABS: Absolute Lymphocyte Count 3.81 X10^3/uL (0.83-4.51); Absolute Neutrophil Count 6.1 X10^3/uL (2.0-7.7); Basophil# 0.05 X10^3/uL; Basophil% 0.5 % (0-1); Eosinophils% 1.9 % (0-5); Hematocrit 33.4 % (37-47); Hemoglobin 10.2 g/dL (12.0-15.0); Lymphocyte # 3.81 X10^3/ul (0.83-4.51); Lymphocyte % 35.9 % (19-41); Mean Corp Hgb Conc 30.5 g/dL (32-36); Mean Corpuscular Hgb 24.1 pg (27.0-32.0); Mean Platelet Vol. 8.4 fl (6.2-12.0); Monocyte# 0.44 X10^3/uL; Monocyte% 4.1 % (0-10); NRBC Flagged by Analyzer 0 % (0-5); Neutrophil # 6.06 X10^3/uL (2.7-7.7); Platelet Count 527 K/mm3 (150-450); RBC Distribution Width CV 16.6 % (11.6-14.6); RBC Distribution Width SD 46.6 fl (35.1-43.9); Red Blood Count 4.23 M/mm3 (4.2-5.4); White Blood Count 10.6 K/mm3 (4.4-11.0)
[2023-05-05] MEDS: 0.9% Normal Saline 1,000 ML 999 ML IV (07:17)
[2023-05-05] MEDS: Morphine 4 MG/ML Syringe IV (07:17)
[2023-05-05] MEDS: Ondansetron 4 MG/2 ML Vial IV (07:17)
[2023-05-05 07:40] LABS: AST(SGOT) 40 U/L (15-37); Alanine Aminotransfer ALT/SGPT 73 U/L (13-56); Albumin, Serum 2.9 g/dL (3.2-5.0); Alkaline Phosphatase 227 U/L (45-117); Anion Gap 12 (5-15); BUN 13 mg/dL (7-18); BUN/Creat Ratio 13.7 RATIO (10-20); Bilirubin, Direct 0.09 mg/dL (0.00-0.30); Calcium,Total 8.7 mg/dL (8.5-10.1); Chloride 107 mmol/L (98-107); Creatinine, Serum 0.95 mg/dL (0.55-1.02); EST Glomerular Filtration Rate 70 mL/min (>60); Est Glom Filt Rate - Afr Amer 85 mL/min (>60); Estimated Creatinine Clearance 66.42 ml/min; Globulin 4.4 g/dL (2.2-4.2); Glucose 116 mg/dL (74-106); Lipase 40 U/L (13-75); Potassium 3.6 mmol/L (3.5-5.1); Protein, Total 7.3 g/dL (6.4-8.2); Sodium Level 140 mmol/L (136-145)
[2023-05-05 07:53] LABS: Prothrombin Time (Protime)PT. 13.6 SECONDS (11.7-14.9)
[2023-05-05 07:54] LABS: Partial Thromboplast Time 32.7 Seconds (24.1-36.2)
[2023-05-05] MEDS: Morphine 2 MG/ML Syringe IV (08:11)
--- NOTE | 2023-05-05 08:27 | CT_ITS ---
INDICATION: Left flank pain EXAMINATION: CT ABDOMEN AND PELVIS WITHOUT CONTRAST TECHNIQUE: Helically acquired images were obtained of the abdomen and pelvis without oral or IV contrast. A radiation dose optimization technique was used for this scan. IV Contrast dosage and agent: None. Oral contrast: None. RADIATION DOSAGE (If Supplied By Facility): CTDIvol = ( 10.13 ) mGy, DLP = ( 511.25 ) mGycm COMPARISON: No prior examinations are available for comparison. FINDINGS: LOWER CHEST: Lung bases are clear. No cardiomegaly or pericardial effusion. LIVER: Homogeneous. No focal mass. GALLBLADDER AND BILIARY TREE: No calcified gallstones. No gallbladder distension or wall edema. No intra- or extrahepatic biliary ductal dilation. PANCREAS: No focal cystic or solid mass. SPLEEN: Normal size without focal cystic or solid mass. ADRENAL GLANDS: Unremarkable right adrenal gland appears slightly prominent left adrenal gland. KIDNEYS AND URETERS: Subtle stranding near the upper pole of the left kidney. No evidence of ureteral stones. No hydronephrosis. PERITONEUM: No ascites or free air. No other fluid collection. BOWEL: No evidence of acute appendicitis. No stomach or bowel distension. No focal inflammatory change. LYMPH NODES: No enlarged mesenteric or retroperitoneal lymph nodes. VESSELS: Aorta is non-dilated. URINARY BLADDER: Unremarkable. REPRODUCTIVE ORGANS: Markedly enlarging uterus measuring over 18 cm in length extending above the level of the umbilicus. ABDOMINAL WALL: Diastases of the anterior rectus muscles and small umbilical hernia containing fat. BONES: No lytic or blastic abnormality. CT/Abdomen/Pelvis without Cont IMPRESSION: 1. Subtle stranding around the upper pole of the left kidney could reflect early pyelonephritis. 2. No evidence of urinary tract stones or hydronephrosis. 3. Otherwise no focal acute inflammatory process. 4. Markedly enlarged uterus with possible fibroids. Electronically Signed: Ariel Wood MD at 9:12 EDT ,
[2023-05-05] MEDS: Ketorolac 30 MG/ML Syringe IV (09:02)
[2023-05-05 09:51] VITALS: BP 120/69; PULSE 61; O2SAT 99
[2023-05-05 10:37] LABS: Mucous, Urine 0 SEEN /hpf (<or=2+); Squamous Epithelial Cells - UA 0 SEEN /hpf (5-10)
[2023-05-05 10:45] LABS: Color, Urine Yellow (Yellow); Glucose, Dipstick Normal (Normal); Ketone-Dipstick 15 mg/dl (Negative); Leukocyte Esterase-Dipstick 500 /ul (Negative); Nitrite-Dipstick Negative (Negative); Occult Blood-Urine 250 /ul (Negative); Protein-Dipstick 30 mg/dl (Negative); Specific Gravity, Urine 1.015 (1.002-1.030); Urine Bilirubin Dipstick Negative (Negative); Urine Clarity Sl. Cloudy (Clear); Urine Urobilinogen Normal (Normal)
[2023-05-05 11:09] LABS: Bacteria RARE /hpf (None Seen); Red Blood Cells-Urine 10-25 SEEN /hpf (0-5); White Blood Cells 10-25 SEEN /hpf (0-5)
[2023-05-05] MEDS: Ceftriaxone 1 GM/50 ML BAG IV (11:20)
== END 2023-05-05 12:15 | disposition home or self-care (01) ==
PROVIDERS: Emergency Provider Emergency Medicine; PCP Family Medicine; Visit Provider Emergency Medicine
DX: O86.20 Urinary tract infection following delivery, unspecified (principal); O99.893 Other specified diseases and conditions complicating puerperium; N23 Unspecified renal colic
CPT/HCPCS: 71275; 74176; 80048; 80076; 81001; 83690; 85025; 85610; 85730; 87086; 87088; 96361; 96365; 96375; 96376; 99282; J7030; Q9967; A4216; J2405

== ENCOUNTER 2023-05-05 20:24 | Emergency (ER) | payer OTHER, SELFPAY ==
[2023-05-05 20:24] VITALS: BP 119/67; PULSE 61; RESP 17; TEMP 36.3; O2SAT 100
--- NOTE | 2023-05-05 20:56 | ED.VIS.BACK ---
HPI History of Present Illness Chief Complaint: Back Detail of Chief Complaint: Left flank pain. No radiation to the abdomen. Informant: patient and spouse/S.O. Onset/Context/Timing Onset: Today and Hours Context: Sudden Onset Timing: Continuous Current Severity: Moderate Maximum Severity: Moderate Worsened by: improves with Nothing Relieved by: Nothing Associated Symptoms Associated Symptoms: Negative for Numbness, Tingling, Radiation to Right Leg, Radiation to Left Leg, Fever, Abdominal Pain, Dysuria, Unable to Ambulate, Unable to Transfer, Urinary Retention, Urinary Incontinence, Constipation or Fecal Incontinence Narrative Narrative: 30-year-old female who just had her 6 child about a week ago was at home delivery she did well. They did a follow-up visit 2 days later she was doing fine. This morning around 4:30 AM she had cute onset left flank pain with no radiation to the abdomen. Was seen in the emergency department and labs and both a CTA of her chest and CT abdomen done for concern of a possible kidney stone or blood clot both of which were negative there is some mild stranding the left kidney and with her urinalysis showing a possible UTI she was treated for urinary tract infection possibly early pyelonephritis. She was started on Bactrim. She complaining of flank pain again and returned tonight. Denies any significant vaginal bleeding. She has no abdominal or suprapubic pain. No fever. Prior similar symptoms: No Recent Illness/Hospitalization: No PFSH PFS Medical History Back pain Home Medications blood sugar diagnostic (Blood Glucose Test strips) #100 ea 06/22/19 [Rx Last Taken Unknown] blood-glucose meter #1 ea 06/22/19 [Rx Last Taken Unknown] lancets 28 gauge (Comfort EZ Lancets) #100 ea 06/22/19 [Rx Last Taken Unknown] cephalexin 500 mg capsule 500 mg PO Q6 #28 CAPSULES 05/05/23 [Rx Last Taken Unknown] oxycodone-acetaminophen 5 mg-325 mg tablet 1 tab PO Q6H PRN PRN Pain 3 days #12 TABLETS 05/05/23 [Rx Last Taken Unknown] Allergy/AdvReac Type Severity Reaction Status Date / Time No Known Allergies Allergy Verified 05/05/23 20:27 Family History Mother Heart disease Breast cancer Father Myocardial infarction, Onset Age: 56 Social History Smoking Status: Never smoker alcohol intake: never substance use type: does not use caffeine: Yes what type of physical activity do you participate in: walking seatbelt use: always do you feel safe at home: Yes additional social history: [employer] 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 Review of Systems ROS Unobtainable: Denies due to encephalopathy Constitutional Constitutional ED: Denies chills or fever(s) Eyes Eyes: Denies blurry vision ENT ENT ED: Denies ear pain Cardiovascular Cardiovascular: Denies chest pain or palpitations Respiratory/Chest Respiratory/Chest: Denies dyspnea Gastrointestinal Gastrointestinal: Reports other Details: Left flank pain. No radiation to her abdomen. ; Denies abdominal pain, constipation, diarrhea, melena, nausea or vomiting Genitourinary Genitourinary ED: Denies dysuria or hematuria Musculoskeletal Musculoskeletal: Reports back pain; Denies arthralgias Integumentary Denies abscess Neurologic Neurologic: Denies headache(s) Psychiatric Psychiatric: Denies anxiety Endocrine Endocrinology: Denies cold intolerance Hematologic/Lymphatic Hematologic/Lymphatic: Denies easy bleeding Allergic/Immunologic Allergic/Immunologic ED: Denies mouth swelling EXAM Physical Exam Narrative Exam Narrative: 38-year-old female lying in bed. Vital signs stable afebrile. She does not look septic or toxic. She is in no distress. is at bedside. H EENT exam unremarkable. Moist with membranes. Neck nontender no lymphadenopathy. Lungs clear to auscultation bilaterally. Heart regular rhythm rate about 60 no murmur. Abdomen soft, nontender, nondistended normal bowel sounds no peritoneal signs. Absolutely no abdominal tenderness. Back she has some very mild tenderness just below her left posterior rib cage. There is no ecchymosis or bruising. No signs of trauma. No rash. No redness or warmth. No bony deformities. Spine and right CVA angle is nontender. Moving all 4 extremities. Nontender no edema. 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 Normal dorsi plantarflexion. Neurologically she is awake and alert with no focal motor deficits. Const Vital Signs: 05/05/23 20:24 05/05/23 21:17 Temperature 97.4 F L Temperature Source Temporal Pulse Rate 61 54 L Respiratory Rate 17 16 Blood Pressure 119/67 123/62 H Blood Pressure Mean 84 82 Pulse Ox 100 100 Oxygen Delivery Method Room Air Room Air Positive well nourished and well developed; Negative for cachectic, contractures or unkempt General Appearance ED: well developed and NAD; Negative for unkempt, cachectic, contractures or pallor Nutritional Appearance: Negative for cachectic HEENT Reports moist mucous membranes; Denies dry mucous membranes Negative for trauma or tenderness Mouth ED: No dry mucous membranes Mouth: No dry mucous membranes Eyes PERRL and EOMs intact bilaterally General Eye ED: Negative for pale conjunctiva or scleral icterus Neck no lymphadenopathy, supple and no JVD General: Negative for tenderness Thyroid: Negative for other Chest Wall Chest: Negative for other Resp normal respiratory effort and clear to auscultation bilaterally Effort and Inspection: Negative for pain with movement Auscultation: Negative for rales, rhonchi or wheezes Percussion: Negative for other Cardio regular rate, regular rhythm, S1 normal heart sound, S2 normal heart sound and no murmurs Palpation: Negative for palpable S3 Rate: Negative for bradycardia or tachycardic Rhythm: Negative for abnormal rhythm Bruits: Negative for other GI normal to inspection, nondistended, normoactive bowel sounds, soft to palpation, non-tender, non-distended and no masses GI Narrative: Absolutely no abdominal or suprapubic tenderness. Inspection: Negative for abdominal distention Auscultation: Negative for hyperactive bowel sounds Palpation: Negative for tender, guarding, hepatomegaly, splenomegaly, mass, pulsatile mass or rebound tenderness present Back/Spine normal to inspection and no thoracic nor lumbar tenderness Back/Spine Narrative: Very minimal tenderness just below her left posterior rib cage. No discoloration. No bruising. No rash. No redness or warmth. No bony tenderness. General Back: CVA tenderness Cervical Spine: Negative for cervical spine tenderness Thoracic Spine / Upper Back: Negative for paraspinal muscle tenderness Lumbar Spine / Lower Back: Negative for ROM limited Extremity normal to inspection and no clubbing, cyanosis or edema General Extremety ED: Negative for edema or tenderness General Extremity: Negative for edema Neuro oriented x3 and no sensory deficits noted Sensorium / Orientation: alert; Negative for confused, lethargic or stuporous Motor Exam: strength 5/5 throughout Psych mental status grossly normal Appearance: Negative for unkempt Attitude: No agitated Mood & Affect: Negative for depressed Skin No no rashes or lesions noted and No no wounds General Skin Exam: Negative for jaundice or pallor Lesions: No lesion noted Rashes: No rashes noted Trauma: Negative for abrasion Wounds: Negative for wounds noted Image ED - Body Diagram Man: 1. Tenderness left CVA region. Normal otherwise exam. Abdomen completely nontender. MDM MDM MDM Narrative Medical decision making narrative: 38-year-old just gave with a vaginal delivery about 5 days ago. Complain left flank pain. Was seen in the emergency department earlier today had a basically benign work-up other possible UTI for which she was started on antibiotics. CTA of her chest and abdomen only showed some mild stranding of the left kidney. No stone. No PE. She will be given Toradol morphine here for pain. Zofran for nausea. Fluids. Screening labs. I do not think she needs reimage. Her abdomen is completely benign. There is no signs of endometritis. She is afebrile. She clinically looks well. Patient doing well on repeat exam at 9:52 PM. Abdomen remains completely nontender benign. She is resting more comfortably after the Toradol and morphine. Repeat exam patient doing well at 10:14 PM. Abdomen benign. She will continue on the Keflex which is her prescription for home for UTI suspected pyelonephritis. CAT scans earlier did not show a PE nor kidney stone. Her abdominal exam is completely benign. She is resting comfortably. Discharged home with outpatient follow-up. Return if worse. She already has Motrin and pain medications she can use at home. History & Record Review Additional record(s) reviewed:: Prior outpatient record, Prior ED visit and Prior labs Lab Data Attestation: I reviewed the patient's lab results. Lab results narrative: CBC shows a white count 12.1 H&H 9.3 and 29.9. Platelets 470. Not a substantial change from prior CBC done earlier today. At that time her hemoglobin was 10.2. Recent chemistries unremarkable. Gap of 11. Normal BUN and creatinine 0.7. Glucose of 112. Labs not significant change earlier today. Labs: Laboratory Results - last 24 hr 05/05/23 21:20 WBC 12.1 H RBC 3.83 L Hgb 9.3 L Hct 29.9 L MCV 78.1 L MCH 24.3 L MCHC 31.1 L RDW Std Deviation 45.9 H RDW Coeff of Xavi 16.5 H Plt Count 470 H MPV 8.5 Immature Gran % (Auto) 0.500 Neut % (Auto) 80.7 H Lymph % (Auto) 13.6 L [place] % (Auto) 4.9 Eos % (Auto) 0.0 Baso % (Auto) 0.3 Absolute Neuts (auto) 9.8 H Absolute Lymphs (auto) 1.64 Nucleated RBC % 0 Sodium 137 Potassium 3.8 Chloride 110 H Carbon Dioxide 16.0 L Anion Gap 11 BUN 14 Creatinine 0.76 Estim Creat Clear Calc 83.02 Est GFR (MDRD) Af Amer 109 Est GFR (MDRD) Non-Af 90 BUN/Creatinine Ratio 18.4 Glucose 112 H Calcium 8.4 L Discharge Plan Triage Chief Complaint: Back ED Provider: Rohan Soto Dx/Rx/DC Orders Clinical Impression: Acute left flank pain, Status post normal delivery, Pyelonephritis Instructions: ED Pyelonephritis, Female (Adult) Prescriptions: No Action oxycodone-acetaminophen [oxycodone-acetaminophen] 5-325 mg tablet 1 tab PO Q6H PRN PRN (Reason: Pain) 3 Days Qty: 12 0RF cephalexin [cephalexin] 500 mg capsule 500 mg PO Q6 Qty: 28 0RF (DME) Blood Glucose Test Strip See Rx Instructions .ROUTE .MEDSUPPLY Qty: 100 9RF Rx Instructions: test blood glucose fasting and the 2 hours after breakfast, lunch and dinner. (DME) blood-glucose meter Kit See Rx Instructions .ROUTE .MEDSUPPLY Qty: 1 0RF Rx Instructions: As directed (DME) lancets [Comfort EZ Lancets] 28 gauge misc See Rx Instructions .ROUTE .MEDSUPPLY Qty: 100 9RF Rx Instructions: As directed Primary Care Provider: Dolly Harding Referrals: Dolly Harding MD [Primary Care Provider] - 3-5 Days Activity Restrictions/Additional Instructions: Continue antibiotic cephalexin 1 pill 4 times a day. Motrin and oxycodone for your pain. Follow-up with your doctor to ensure you are improving. Return if increasing pain, fever or you are feeling worse. This appears to be all from a urinary tract infection that is involving your left kidney. Disposition Disposition: Home, Self Care
[2023-05-05] MEDS: Morphine 4 MG/ML Syringe 6 MG IV (21:16)
[2023-05-05] MEDS: 0.9% Normal Saline 1,000 ML 1000 ML IV (21:16)
[2023-05-05] MEDS: Ondansetron 4 MG/2 ML Vial IV (21:16)
[2023-05-05] MEDS: Ketorolac 30 MG/ML Syringe IV (21:16)
[2023-05-05 21:17] VITALS: BP 123/62; PULSE 54; RESP 16; O2SAT 100
[2023-05-05 21:18] VITALS: BMI 36.5
[2023-05-05 21:29] LABS: Absolute Lymphocyte Count 1.64 X10^3/uL (0.83-4.51); Absolute Neutrophil Count 9.8 X10^3/uL (2.0-7.7); Basophil# 0.04 X10^3/uL; Basophil% 0.3 % (0-1); Hematocrit 29.9 % (37-47); Hemoglobin 9.3 g/dL (12.0-15.0); Lymphocyte # 1.64 X10^3/ul (0.83-4.51); Lymphocyte % 13.6 % (19-41); Mean Corp Hgb Conc 31.1 g/dL (32-36); Mean Corpuscular Hgb 24.3 pg (27.0-32.0); Mean Corpuscular Volume 78.1 fL (81-99); Mean Platelet Vol. 8.5 fl (6.2-12.0); Monocyte# 0.59 X10^3/uL; Monocyte% 4.9 % (0-10); NRBC Flagged by Analyzer 0 % (0-5); Neutrophil # 9.75 X10^3/uL (2.7-7.7); Neutrophil % 80.7 % (47-70); Platelet Count 470 K/mm3 (150-450); RBC Distribution Width CV 16.5 % (11.6-14.6); RBC Distribution Width SD 45.9 fl (35.1-43.9); Red Blood Count 3.83 M/mm3 (4.2-5.4); White Blood Count 12.1 K/mm3 (4.4-11.0)
[2023-05-05 22:12] LABS: Anion Gap 11 (5-15); BUN 14 mg/dL (7-18); BUN/Creat Ratio 18.4 RATIO (10-20); Calcium,Total 8.4 mg/dL (8.5-10.1); Chloride 110 mmol/L (98-107); Creatinine, Serum 0.76 mg/dL (0.55-1.02); EST Glomerular Filtration Rate 90 mL/min (>60); Est Glom Filt Rate - Afr Amer 109 mL/min (>60); Estimated Creatinine Clearance 83.02 ml/min; Glucose 112 mg/dL (74-106); Potassium 3.8 mmol/L (3.5-5.1); Sodium Level 137 mmol/L (136-145)
[2023-05-05 22:18] VITALS: BP 125/64; PULSE 55; RESP 16; O2SAT 94
[2023-05-05] MEDS: Cephalexin 250 MG Capsule 500 MG PO (22:39)
== END 2023-05-05 23:12 | disposition home or self-care (01) ==
PROVIDERS: Emergency Provider Emergency Medicine; PCP Family Medicine; Visit Provider Emergency Medicine
DX: O86.21 Infection of kidney following delivery (principal)
CPT/HCPCS: 80048; 85025; 96361; 96374; 96375; 99284; A4216; J2405